=== PATIENT | male | born 1975 | race Two or more races ===

== ENCOUNTER → 2024-08-16 | Outpatient (CLI) | payer MEDICARE, SELFPAY ==
[2024-08-16 09:39] LABS: Basophils # (Auto) 0.1 Thou/mm3 (0.0-0.2); Basophils % (Auto) 1 % (0-2.5); Eosinophils # (Auto) 0.3 Thou/mm3 (0.0-0.5); Eosinophils % (Auto) 3 % (0-10); Hematocrit 44.9 % (41.0-53.0); Hemoglobin 15.5 g/dL (13.5-16.0); Immature Granulocytes % (Auto) 0 % (0-0); Immature Granulocytes Auto 0.02 Thou/mm3 (0.00-0.00); Lymphocytes # (Auto) 2.1 Thou/mm3 (1.0-4.8); Lymphocytes % (Auto) 26 % (10-50); Mean Corpuscular HGB Conc 34.5 g/dl (31.0-37.0); Mean Corpuscular Volume 84 fL (80-100); Monocytes # (Auto) 0.7 Thou/mm3 (0.0-0.8); Monocytes % (Auto) 9 % (0-12); Neutrophils % (Auto) 61 % (37-80); Nucleated Red Blood Cell % 0 /100 WBC (0); Platelet Count 235 Thou/mm3 (140-440); RDW Standard Deviation 38.9 fL (35.1-43.9); Red Blood Count 5.34 Miln/mm3 (4.50-5.90); White Blood Count 8.2 Thou/mm3 (3.8-10.6)
[2024-08-16 10:01] LABS: Alanine Aminotransferase 31 U/L (10-49); Albumin, Serum 4.9 gm/dL (3.5-5.0); Albumin/Globulin Ratio 1.8 (1.2-2.2); Alkaline Phosphatase 93 U/L (46-116); Anion Gap 11 (7-16); Aspartate Amino Transferase 20 U/L (0-34); BUN/Creatinine Ratio 21 Ratio (12-20); Bilirubin,Total 0.6 mg/dL (0.3-1.2); Blood Urea Nitrogen 33 mg/dL (9-23); Calcium 9.6 mg/dL (8.3-10.6); Calcium (Corrected) 9.6 mg/dL (8.5-10.1); Cardiac Risk Estimate 4.5 RATIO (4.0-6.7); Chloride 102 mMol/L (98-107); Cholesterol 171 mg/dL (132-200); Creatinine (Component) 1.6 mg/dL (0.6-1.3); Free T4 (Free Thyroxine) 1.65 ng/dL (0.89-1.76); Globulin 2.8 gm/dL (2.3-3.5); Glucose 264 mg/dL (74-106); HDL Cholesterol 38 mg/dL (40-60); Magnesium 1.8 mg/dL (1.6-2.6); Osmolality,Calculated 293 (275-295); Phosphorous 3.7 mg/dL (2.4-5.1); Potassium 4.1 mMol/L (3.4-5.1); Sodium 139 mMol/L (136-145); Thyroid Stimulating Hormone 1.15 uIU/mL (0.55-4.78); Total Protein 7.7 gm/dL (5.7-8.2); Triglycerides 414 mg/dL (30-150); Vitamin B12 450 pg/mL (211-911); Vitamin D 25 Hydroxy Total 43.5 ng/mL (7.3-40.2); eGFR 53 See Note
[2024-08-16 10:12] LABS: Sed Rate (ESR) 8 mm/hr (0-15)
[2024-08-16 10:25] LABS: Glucose Estimated Average 197 mg/dL (80-131); Hemoglobin A1C 8.5 % Hgb (4.8-6.0)
[2024-08-23 07:02] LABS: T3, Reverse, LC/MS/MS* 26 ng/dL (8-25); T3,Total* 89 ng/dL (76-181)
== END | disposition home or self-care (01) ==
LOC: COPL 08:57
PROVIDERS: PCP Internal Medicine; Referring Provider Internal Medicine; Visit Provider Internal Medicine
DX: E11.65 Type 2 diabetes mellitus with hyperglycemia (principal); E03.9 Hypothyroidism, unspecified; I10 Essential (primary) hypertension
CPT/HCPCS: 36415; 80053; 80061; 82306; 82607; 83036; 83735; 84100; 84153; 84439; 84443; 84480; 84482; 85025; 85652

== ENCOUNTER 2024-10-02 18:50 | Emergency (ER) | payer MEDICARE, MEDICAID, SELFPAY ==
--- NOTE | 2024-10-02 | XR_ITS ---
Examination: CT abdomen and pelvis without contrast. Coronal 3-D reconstructions. Sagittal 2-D reconstructions. Date and time of exam:October 02, 2024 2046 hours INDICATIONS: Abdominal pain and hematuria today COMPARISON: September 03, 2022 CTDI: vol (mGy): 12.2 DLP: (mGycm): 883 Technique: Axial images of the abdomen have been obtained, 3 mm slice thickness Intravenous contrast material has not been administered. Low dose protocols were performed. One or more of the following dose reduction techniques were used; automated exposure control, adjustment of the mA and/or KV according to patient size, use of iterative reconstruction technique. Findings: No focal or splenic lesion Contracted gallbladder No pancreatic mass Perinephric stranding No renal or ureteral calculi, no hydronephrosis Aorta normal size No bowel obstruction Absent appendix No diverticulitis Urinary bladder wall thickening up to 7 mm IMPRESSION: No perinephric stranding, consider urinary tract infection Cystitis pattern. No renal or ureteral calculi, no hydronephrosis
[2024-10-02 19:39] VITALS: BP 175/105; PULSE 97; RESP 17; TEMP 36.7; O2SAT 95
--- NOTE | 2024-10-02 20:13 | EDNOTE_ITS ---
ED Male Genitalurinary RME/HPI General Chief complaint: Urogenital-Male Stated complaint: Blood in urine today Time Seen by Provider: 10/02/24 20:01 Arrival date/time: 10/02/24 18:50 RME / HPI RME / HPI Narrative: This section includes all my notes and documentations, including HPI, PE, and ED course. Lorenzo Echols MD HPI: 49 y/o male with Hx of Diabetes Mellitus Type 2 presents with bright red blood in his urine and abdominal pain that is difficult to localize x approximately 12 hours. Urine is redder and thicker compared to punch. No other complaints. ROS: All negative except as documented in HPI. Physical Exam: General: Alert and oriented. No acute distress when remaining still. Eyes: Conjunctivae and lids clear. ENT: No nasal congestion. Neck: Supple. Heart: RRR. Lungs: No respiratory distress. Good air movement. No rhonchi, wheezing, rales. Abdomen: Soft with lower abdominal tenderness. Normal bowel sounds. No distension. No rebound or guarding. Back: No CVA tenderness. Skin: Warm and dry. Neuro: Alert and oriented X 3. I reviewed all diagnostic test results: My review of the Abdomen/Pelvis CT report is cystitis pattern. Blood tests remarkable for WBC 14.4, Cr 1.5, Glu 333. UA showed positive leukocyte Estrace, 7688 RBC, and 221 WBC. At this point, diagnoses include: Hematuria, UTI. Treatment here included: CBI, IVF, Toradol, Zofran, Rocephin, Dilaudid, and Insulin. Despite CBI via three-way Morris catheter, no improvement noted. Patient worsened with clots causing urinary retention. I discussed the case with Dr. Leos ([facility]).? About the presentation and exam and diagnostics and treatments here.? And need of further care in the hospital there.? Will accept the patient. Lorenzo Echols MD Related Data Home Medications ?Medication ?Instructions ?Recorded ?Confirmed amlodipine 5 mg tablet 5 mg PO BID 02/01/20 5 multivitamin tab 02/01/20 empagliflozin 25 mg tablet 25 mg PO QAM 10/03/2410/03 (Jardiance) ezetimibe 10 mg tablet mg 10/03/24 levothyroxine 75 mcg tablet mcg 10/03/24 losartan 100 mg tablet mg 10/03/24 metoprolol succinate 25 mg mg PO 10/03/24 tablet,extended release 24 hr omeprazole 40 mg capsule,delayed mg 10/03/24 release pregabalin 100 mg capsule mg 10/03/24 sitagliptin phosphate 50 1 tab PO BID 10/03/24 mg-metformin 1,000 mg tablet (Brenda) Previous Rx's ?Medication ?Instructions ?Recorded cefdinir 300 mg capsule 300 mg PO BID #14 caps 10/03 ondansetron 4 mg disintegrating 4 mg PO TID PRN nausea and 10/03/24 tablet vomiting 30 days #10 tabs Allergies Allergy/AdvReac Type Severity Reaction Status Date / Time metoclopramide HCl AdvReac Severe Agitated Verified 10/02/24 18:55 Review of Systems Review of Systems Systems Reviewed: All systems reviewed, normal except as documented Past Medical History Past Medical History CARDIAC: Positive Cardiac Disorders and Hypertension RESPIRATORY: Positive Asthma and Pneumonia GASTROINTESTINAL: Positive Gastrointestinal Disorders, Diverticulitis, Hemorrhoids and Obesity MUSCULOSKELETAL: Positive Musculoskeletal Disorders, Arthritis, Degenerative Disk Disease and Degenerative Joint Disease ENDOCRINE: Positive Endocrine Disorders, Diabetes Mellitus Type 2 and H ypothyroidism PSYCHO/SOCIAL: Positive Depression and Anxiety OTHER HISTORY: Positive Hospitalization, Falls and Chicken Pox Family History FAMILY HISTORY: Positive Family Psychiatric Problems, Family Cardiac Disorders, Family Surgery and Family Anesthesia Reaction Surgical History SURGICAL: Positive Bowel Surgery, Joint Replacement, Amputation (letf middle finger), Open Reduction Internal Fixation and Arthroscopy Social History SMOKING STATUS: Current every day smoker ED Exam Narrative Physical exam: Referf to [facility] Course Quality Measures none Orders Category Date Time Status [place] to [place] Routine Care 10/02/24 20:03 Ordered Saline [Insert IV] NOW Care 10/02/24 20:03 Completed Transfer to another facility [Transfer/Discharge] Stat Discharge 10/03/24 05:[address] abdomen pelvis wo con Stat Exams 10/02/24 Completed Bilirubin,Direct Stat Lab 10/02/24 20:28 Completed CBC Stat Lab 10/02/24 20:28 Completed CMP [Comprehensive Metabolic Panel] Stat Lab 10/02/24 20:28 Completed Free T4 (Free Thyroxine) Stat Lab 10/02/24 20:28 Completed Hemoglobin and Hematocrit Stat Lab 10/03/24 02:23 Completed Magnesium Stat Lab 10/02/24 20:28 Completed PT [Prothrombin Time with INR] Stat Lab 10/02/24 20:28 Completed PTT [Partial Thromboplastin Time] Stat Lab 10/02/24 20:28 Completed TSH [Thyroid Stimulating Hormone] Stat Lab 10/02/24 20:28 Completed UA, C/S IF [Urinalysis, C/S if Indicated] Stat Lab 10/02/24 20:31 Completed UA, C/S IF [Urinalysis, C/S if Indicated] Stat Lab 10/02/24 20:31 Completed Urine Culture Stat Lab 10/02/24 20:31 Received HYDROmorphone INJ [Dilaudid Inj] Med 10/03/24 05:16 Discontinued 2 mg IM X1 ONE Insulin Regular Med 10/03/24 01:12 Discontinued 5 unit IV X1 ONE Ketorolac Inj [Toradol Inj] Med 10/02/24 20:04 Discontinued 30 mg IVP X1 ONE Lidocaine Jelly 2% Urojet [Xylocaine Jelly 2% Urojet] Med 10/02/24 20:29 Discontinued See Dose Instructions TOP X1 ONE Ondansetron Inj [Zofran Inj] Med 10/02/24 20:04 Discontinued 4 mg IVP X1 ONE Sodium Chloride 0.9% 1000 ml [Ns] 1,000 ml Med 10/02/24 20:04 Discontinued IV 999 mls/hr cefTRIAXone/D5w 1gm IV premix [Rocephin/D5w 1gm IV Med 10/02/24 21:39 Discontinued premix] 1 g in 50 ml IV X1 Vital Signs Vital signs: Vital Signs Temperature 98.0 F 10/02/24 19:39 Pulse Rate 97 10/02/24 19:39 Respiratory Rate 17 10/02/24 19:39 Blood Pressure 175/105 H 10/02/24 19:39 Pulse Oximetry (%) 95 10/02/24 19:39 Oxygen Delivery Method Room Air 10/02/24 19:39 Urogenital - Male MDM Narrative MDM Narrative:: Scribe Attestation: IMonik am scribing for and in the presence of Dr. Echols. Provider Notation: Although this document has been carefully reviewed, there may still be some phonetic and other typographical errors.? These errors are purely grammatical due to imperfections in the software program and should not be construed in any way to? compromise the substance of the patient's medical care during this visit. 49 y/o male with Hx of Diabetes Mellitus Type 2 presents with bright red blood in his urine and abdominal pain that is difficult to localize x approximately 12 hours. Urine is darker compared to that of fruit punch. No other concerns. Patient data External records reviewed:: [facility] previous records (No recent ED records available for review.) Clinical information provided by:: patient Social determinants that could affect healthcare access:: none Patient has the following chronic illnesses:: Hypertension, Asthma, Pneumonia, Diverticulitis, Hemorrhoids, Obesity, Arthritis, Degenerative Disk Disease, Degenerative Joint Disease, Diabetes Mellitus Type 2, Hypothyroidism, Depression, Anxiety How is presenting disease/condition affected by chronic disease/condition?: exacerbated by Evaluation data The following diagnostics were reviewed and interpreted by me:: lab results and radiology exam(s) Lab and/or radiology exams considered but not ordered:: None Interpretation Summary: I reviewed all diagnostic test results: My review of the Abdomen/Pelvis CT report is cystitis pattern. Blood tests remarkable for WBC 14.4, Cr 1.5, Glu 333. UA showed positive leukocyte Estrace, 7688 RBC, and 221 WBC. Medications / Prescriptions Medications or Prescriptions considered but not ordered:: None Medication administrations:: Medication Administration History Discontinued Medications Hydromorphone HCl (Hydromorphone Inj 2 Mg/Ml Vial) 2 mg IM X1 ONE Stop: 10/03/24 05:17 Last Admin: 10/03/24 05:24 Dose: 2 mg Documented By: LAUREN Sodium Chloride (Ns) 1,000 mls @ 999 mls/hr IV .Q1H1M ONE Stop: 10/02/24 21:04 Last Infusion: 10/02/24 22:17 Dose: Infused Documented By: Admin: 10/02/24 21:16 Dose: 999 mls/hr Documented By: DONNA Ceftriaxone Sodium/Dextrose (Rocephin/D5w 1gm Iv Premix) 1 g in 50 mls @ 100 mls/hr IV X1 ONE Stop: 10/02/24 22:08 Last Infusion: 10/02/24 22:51 Dose: Infused Documented By: Admin: 10/02/24 22:21 Dose: 100 mls/hr Documented By: DNONA Insulin Human Regular (Insulin Hum Regular 1 Unit/0.01 Ml (Per Unit)) 5 unit IV X1 ONE Stop: 10/03/24 01:13 Last Admin: 10/03/24 01:27 Dose: 5 unit Documented By: DONNA Co-signed By: MARINA Ketorolac Tromethamine (Ketorolac Inj 30 Mg/Ml Vial) 30 mg IVP X1 ONE Stop: 10/02/24 20:05 Last Admin: 10/02/24 21:16 Dose: 30 mg Documented By: DONNA Lidocaine HCl (Lidocaine Jelly 2% (Urojet) 10 Ml Tube) 0 ml TOP X1 ONE Stop: 10/02/24 20:30 Last Admin: 10/02/24 21:09 Dose: 10 ml Documented By: DONNA Comments: Unable to scan Ondansetron HCl (Ondansetron Inj 2 Mg/Ml Inj 2 Ml) 4 mg IVP X1 ONE; Protocol Stop: 10/02/24 20:05 Last Admin: 10/02/24 21:16 Dose: 4 mg Documented By: DONNA Treatment here included: CBI, IVF, Toradol, Zofran, Rocephin, Dilaudid, and Insulin. Despite CBI via three-way Morris catheter, no improvement noted. Patient worsened with clots causing urinary retention. I discussed the case with Dr. Leos ([facility]).? About the presentation and exam and diagnostics and treatments here.? And need of further care in the hospital there.? Will accept the patient. Consultations Consultation(s) initiated? (list below): Yes Consultation #1 (Physician, Specialty, Details): I discussed the case with Dr. Leos ([facility]).? About the presentation and exam and diagnostics and treatments here.? And need of further care in the hospital there.? Will accept the patient. Consultation #2 (Physician, Specialty, Details): Patient will be transferred to [facility], ED to ED. STAT. Accepted by Dr. Leos. Diagnosis Urogenital Male Differential Diagnosis: priapism, urethritis, epididymitis, genital herpes simplex, prostatitis, acute retention of urine, inguinal hernia and other (Cisctitis, VERN) Most likely diagnosis given after review of the tests above:: Hematuria, UTI Admission Indicated Admission indicated?: not indicated Explain why admission is indicated or not indicated:: No urology service at this facility. Admission Request Was there a request for admission?: No Disposition Plan Disposition Plan: Transfer Critical Care Time Critical Care Time Critical Care Time: Yes Total Critical Care Time (min.): 36 Attestation: Due to a high probability of clinically significant, life threatening deterioration, the patient required my highest level of preparedness to intervene emergently and I personally spent this critical care time directly and personally managing the patient. This critical care time included obtaining a history; examining the patient; ordering and review of studies; arranging urgent treatment with development of a management plan; evaluation of patient's response to treatment; frequent reassessment; and discussions with family and other providers. It was exclusive of separately billable procedures and treating other patients and teaching time. Lorenzo Echols MD Discharge Plan Plan Patient Disposition: [facility] Pt Being Transferred to: [facility] Service Needed for Transfer: Urology Prescriptions/Referrals Prescriptions/Med Rec: New ondansetron 4 mg tablet,disintegrating 4 mg PO TID PRN (Reason: nausea and vomiting) 30 Days Qty: 10 0RF cefdinir 300 mg capsule 300 mg PO BID Qty: 14 0RF No Action multivitamin Tablet amlodipine 5 mg Tablet 5 mg PO BID Janumet 50-1,000 mg tablet 1 tab PO BID levothyroxine 75 mcg tablet Patient Comments: TAKE 1 TABLET BY MOUTH EVERY DAY IN THE MORNING ON EMPTY STOMACH FOR 90 DAYS losartan 100 mg tablet Patient Comments: TAKE 1 TABLET BY MOUTH EVERY DAY ezetimibe 10 mg tablet Patient Comments: TAKE 1 TABLET BY MOUTH EVERY DAY pregabalin 100 mg capsule Patient Comments: TAKE 1 CAPSULE BY MOUTH THREE TIMES A DAY Jardiance 25 mg tablet 25 mg PO QAM omeprazole 40 mg capsule,delayed release(DR/EC) Patient Comments: TAKE 1 CAPSULE BY MOUTH EVERY DAY FOR 90 DAYS metoprolol succinate 25 mg tablet extended release 24 hr PO Patient Comments: TAKE 1 TABLET BY MOUTH EVERY DAY Referrals: Yanelis Lima [Primary Care Provider] - In 1 week Problem List Clinical Impression: Hematuria, UTI (urinary tract infection), Urinary retention Patient/Caregiver Discharge Instructions Discharge Activity: activity as tolerated Education Materials: ED Hematuria, ED Bladder Infection, Male (Adult) Additional Instructions: Discharge instructions from Dr. Echols: 1. After evaluation, your severe hematuria (blood in the urine) was treated with copious irrigation. You have UTI (see attached handout).? Hopefully, this is causing the hematuria. 2. Take cefdinir to kill the germs causing the infection.? Increase oral fluid to flush it out.? Maintain clear urine.? If dark or yellow, increase oral fluid. 3. Zofran for nausea/vomiting.? 4. See a private doctor on 10/04/2024 for recheck.? Ask to review all test results and official radiology reports, to make sure you receive all necessary follow-ups and monitoring, including final urine culture results from today. Ask for help seeing a urologist as soon as possible to find the cause and treatment of your severe hematuria. 5. Seek immediate medical care with worsening, fever, or with any concerns. Unfortunately, this hospital doesn't have ER or inpatient urology services. Print Language: Telugu Stand Alone Forms: Kathy Award Info., Patient Portal Info Letter
[2024-10-02 20:35] LABS: Basophils # (Auto) 0.1 Thou/mm3 (0.0-0.2); Basophils % (Auto) 1 % (0-2.5); Eosinophils # (Auto) 0.2 Thou/mm3 (0.0-0.5); Eosinophils % (Auto) 1 % (0-10); Hematocrit 45.3 % (41.0-53.0); Hemoglobin 16.3 g/dL (13.5-16.0); Immature Granulocytes % (Auto) 0 % (0-0); Immature Granulocytes Auto 0.05 Thou/mm3 (0.00-0.00); Lymphocytes # (Auto) 2.4 Thou/mm3 (1.0-4.8); Lymphocytes % (Auto) 17 % (10-50); Mean Corpuscular Hemoglobin 29.7 pg (25.0-35.0); Mean Corpuscular Volume 83 fL (80-100); Monocytes # (Auto) 1.1 Thou/mm3 (0.0-0.8); Monocytes % (Auto) 7 % (0-12); Neutrophils # (Auto) 10.7 Thou/mm3 (1.8-7.7); Neutrophils % (Auto) 74 % (37-80); Nucleated Red Blood Cell % 0 /100 WBC (0); Platelet Count 261 Thou/mm3 (140-440); Red Blood Count 5.49 Miln/mm3 (4.50-5.90); White Blood Count 14.4 Thou/mm3 (3.8-10.6)
[2024-10-02 20:46] LABS: Collection Type, Urine Clean Catch; Squamous Epithelial Cell,Urine 0 /hpf (0-5)
[2024-10-02 20:49] LABS: INR 0.9 (0.9-1.3); Partial Thromboplastin Time 31.1 Seconds (22.0-36.0); Prothrombin Time 10.3 Seconds (9.0-12.2)
[2024-10-02 20:57] LABS: Alanine Aminotransferase 49 U/L (10-49); Albumin, Serum 4.7 gm/dL (3.5-5.0); Albumin/Globulin Ratio 1.8 (1.2-2.2); Alkaline Phosphatase 116 U/L (46-116); Anion Gap 13 (7-16); Aspartate Amino Transferase 27 U/L (0-34); BUN/Creatinine Ratio 10 Ratio (12-20); Bilirubin,Direct < 0.1 mg/dL (0.0-0.3); Bilirubin,Total 0.5 mg/dL (0.3-1.2); Blood Urea Nitrogen 15 mg/dL (9-23); Calcium 9.7 mg/dL (8.3-10.6); Calcium (Corrected) 9.7 mg/dL (8.5-10.1); Carbon Dioxide 21.8 mMol/L (20.0-31.0); Chloride 98 mMol/L (98-107); Creatinine (Component) 1.5 mg/dL (0.6-1.3); Free T4 (Free Thyroxine) 1.58 ng/dL (0.89-1.76); Globulin 2.6 gm/dL (2.3-3.5); Glucose 333 mg/dL (74-106); Magnesium 1.8 mg/dL (1.6-2.6); Osmolality,Calculated 280 (275-295); Sodium 133 mMol/L (136-145); Thyroid Stimulating Hormone 1.58 uIU/mL (0.55-4.78); Total Protein 7.3 gm/dL (5.7-8.2); eGFR 57 See Note
[2024-10-02 20:58] LABS: Bilirubin,Urine Negative (Negative); Blood,Urine 3+ (Negative); Color,Urine Dark-Brown (Lt Yel-Yel); Glucose, Urine 4+ (Negative); Ketones,Urine Negative (Negative); Leukocyte Esterase,Urine Positive (Negative); Nitrite,Urine Negative (Negative); Protein,Urine 2+ (Neg - Trace); RBC,Urine 7688 /hpf (0-3); Specific Gravity,Urine 1.032 (1.001-1.035); Urobilinogen,Urine Negative mg/dL (0.0-1.0); WBC,Urine 221 /hpf (0-5)
[2024-10-02 21:00] VITALS: BP 147/100; PULSE 95; RESP 18; TEMP 36.8; O2SAT 97
[2024-10-02 21:08] LABS: Clarity,Urine Turbid (Clear/Hazy); Culture Indicated,Urine Yes
[2024-10-02] MEDS: LIDOCAINE JELLY 2% (Urojet) 10 ML TUBE TOP (21:09)
[2024-10-02 21:14] LABS: Bilirubin,Urine Negative (Negative); Blood,Urine 3+ (Negative); Clarity,Urine Turbid (Clear/Hazy); Color,Urine Drk Red (Lt Yel-Yel); Glucose, Urine 4+ (Negative); Ketones,Urine Negative (Negative); Nitrite,Urine Negative (Negative); Protein,Urine 2+ (Neg - Trace); Specific Gravity,Urine 1.032 (1.001-1.035); Urobilinogen,Urine Negative mg/dL (0.0-1.0)
[2024-10-02 21:15] LABS: Culture Indicated,Urine Yes; Leukocyte Esterase,Urine Positive (Negative); RBC,Urine 7688 /hpf (0-3); WBC,Urine 221 /hpf (0-5)
[2024-10-02] MEDS: KETOROLAC INJ 30 MG/ML VIAL IVP (21:16)
[2024-10-02] MEDS: ONDANSETRON INJ 2 MG/ML INJ 2 ML 4 MG IVP (21:16)
[2024-10-02] MEDS: SODIUM CHLORIDE 0.9% 1000 ML 1,000 ML 999 ML IV (21:16)
[2024-10-02] MEDS: cefTRIAXone/D5w 1gm IV premix 1 G/50 ML BAG IV (22:21)
[2024-10-03] MEDS: INSULIN HUM REGULAR 1 UNIT/0.01 ML (PER UNIT) 5 UNIT IV (01:27)
[2024-10-03 01:32] VITALS: BP 162/87; PULSE 78; RESP 18; TEMP 36.7; O2SAT 95
[2024-10-03 02:29] LABS: Hematocrit 40.1 % (41.0-53.0); Hemoglobin 14.9 g/dL (13.5-16.0)
--- NOTE | 2024-10-03 02:38 | PC.NURSE ---
0208 [facility] CALLED AT THIS TIME, PKT SENT.
[2024-10-03 03:00] VITALS: BP 159/99; PULSE 99; RESP 18; TEMP 37; O2SAT 99
--- NOTE | 2024-10-03 03:30 | PC.NURSE ---
THIS RN INFORMED PATIENT RICHARDSON NO LONGER DRAINING. NO ORDERS RECEIVED FROM PROVIDER.
[2024-10-03 05:00] VITALS: BP 122/91; PULSE 99; RESP 18; TEMP 37; O2SAT 99
--- NOTE | 2024-10-03 05:04 | PC.NURSE ---
THIS RN BLADDER SCANNED PATIENT DUE TO NO URINE OUTPUT PER 1 HOUR. PROVIDER NITHYA INFORMED OF APPROXIMATELY 500 ML BLADDER CAN RESULT. NO ORDERS PER PROVIDER.
[2024-10-03] MEDS: HYDROmorphone INJ 2 MG/ML VIAL IM (05:24)
--- NOTE | 2024-10-03 05:38 | PC.NURSE ---
0506 PT ACCEPTED TO [facility] BY DR JOHNSTON AND DR XIAO. REPORT [phone].
== END 2024-10-03 06:04 | disposition short-term general hospital (02) ==
PROVIDERS: Emergency Provider Emergency Medicine; PCP Internal Medicine
DX: N39.0 Urinary tract infection, site not specified (principal); R31.9 Hematuria, unspecified; R33.9 Retention of urine, unspecified; Z75.1 Person awaiting admission to adequate facility elsewhere
CPT/HCPCS: 51700; 36415; 74176; 80053; 81001; 82248; 83735; 84439; 84443; 85014; 85018; 85025; 85610; 85730; 87077; 87086; 87186; 96361; 96365; 96372; 96374; 96375; 99291; J0696; J1171; J1815; J1885; J2405; J7030

== ENCOUNTER → 2024-11-15 | Outpatient (CLI) | payer MEDICARE, MEDICAID, SELFPAY ==
[2024-11-15 12:11] LABS: Basophils # (Auto) 0.1 Thou/mm3 (0.0-0.2); Basophils % (Auto) 1 % (0-2.5); Eosinophils # (Auto) 0.2 Thou/mm3 (0.0-0.5); Eosinophils % (Auto) 3 % (0-10); Hematocrit 42.9 % (41.0-53.0); Hemoglobin 15.3 g/dL (13.5-16.0); Immature Granulocytes Auto 0.03 Thou/mm3 (0.00-0.00); Immature Reticulocyte Fraction 9.5 % (2.3-13.4); Lymphocytes # (Auto) 1.8 Thou/mm3 (1.0-4.8); Lymphocytes % (Auto) 27 % (10-50); Mean Corpuscular HGB Conc 35.7 g/dl (31.0-37.0); Mean Corpuscular Hemoglobin 29.3 pg (25.0-35.0); Mean Corpuscular Volume 82 fL (80-100); Monocytes # (Auto) 0.5 Thou/mm3 (0.0-0.8); Monocytes % (Auto) 8 % (0-12); Neutrophils # (Auto) 4.2 Thou/mm3 (1.8-7.7); Neutrophils % (Auto) 62 % (37-80); Nucleated Red Blood Cell # 0.00 Thou/mm3 (0.00-0.00); Nucleated Red Blood Cell % 0 /100 WBC (0); Platelet Count 234 Thou/mm3 (140-440); RDW Standard Deviation 38.0 fL (35.1-43.9); Red Blood Count 5.23 Miln/mm3 (4.50-5.90); Reticulocyte % (Auto) 1.8 % (0.5-1.5); Reticulocyte Absolute Auto 92.6 Biln/L (25.0-75.0); Reticulocyte Hgb Content 34.3 pg (28.0-35.0); White Blood Count 6.9 Thou/mm3 (3.8-10.6)
[2024-11-15 12:31] LABS: Sed Rate (ESR) 24 mm/hr (0-15)
[2024-11-15 12:49] LABS: Iron 82 mcg/dL (65-175)
[2024-11-15 13:35] LABS: Glucose Estimated Average 289 mg/dL (80-131); Hemoglobin A1C 11.7 % Hgb (4.8-6.0)
[2024-11-15 13:40] LABS: Anion Gap 15 (7-16); BUN/Creatinine Ratio 15 Ratio (12-20); Blood Urea Nitrogen 22 mg/dL (9-23); Calcium 10.8 mg/dL (8.3-10.6); Carbon Dioxide 23.4 mMol/L (20.0-31.0); Chloride 95 mMol/L (98-107); Creatinine (Component) 1.5 mg/dL (0.6-1.3); Glucose 376 mg/dL (74-106); Osmolality,Calculated 284 (275-295); Potassium 4.0 mMol/L (3.4-5.1); Sodium 133 mMol/L (136-145); eGFR 57 See Note
== END | disposition home or self-care (01) ==
LOC: CDIM 11:27 → COPL 11:33
PROVIDERS: PCP Internal Medicine; Referring Provider Internal Medicine; Visit Provider Internal Medicine
DX: I10 Essential (primary) hypertension (principal); E11.65 Type 2 diabetes mellitus with hyperglycemia
CPT/HCPCS: 36415; 80048; 83036; 83540; 85025; 85046; 85652